=== PATIENT | male | born 1980 | race Caucasian/White ===

== ENCOUNTER 2022-12-18 21:20 | Inpatient (IN) | payer MEDICARE, MEDICAID ==
[2022-12-18 22:08] LABS: Bilirubin Neg (Negative); Blood, Urine 25 (Negative); Clarity Cloudy (Clear); Glucose, Urine (Dipstick) Normal (Negative); Ketone, Urine 150 mg/dL (Negative); Leukocyte 500 (Negative); Nitrite Positive (Negative); Protein, Urine (Dipstick) 30 mg/dl (Neg-Trace); Specific Gravity, Urine 1.025 (1.005-1.030); Urobilinogen Normal mg/dL (Less than 2)
[2022-12-18 22:25] LABS: Bacteria/HPF 3+ HPF (None Seen); RBC/HPF 0-3 HPF (0-3); Squamous Epithelial None Seen HPF (0-3); WBC/HPF Greater than 50 HPF (0-3)
[2022-12-18 22:45] LABS: Hemoglobin 16.3 g/dL (13.5-17.5); Mean Corpuscular HGB CONC 33.1 g/dL (32.0-36.0); Mean Corpuscular Hemoglobin 30.6 pg (27.0-33.0); Mean Corpuscular Volume 92.5 fl (81.2-95.1); Mean Platelet Volume 10.1 fl (7.4-10.4); Platelet Count 260 10x3/uL (150-450); RBC Distribution Width 12.6 % (11.5-14.5); Red Blood Cell (RBC) Count 5.32 10x6/uL (4.32-5.72)
[2022-12-18 22:47] LABS: SARS-CoV-2 NAA Rapid Test Not Detected (NotDetected)
[2022-12-18 22:48] LABS: ALT (SGPT) 13 U/L (8-55); AST (SGOT) 16 U/L (5-34); Albumin 4.6 g/dL (3.5-5.0); Alkaline Phosphatase 107 U/L (40-110); Anion Gap 16 mmol/L (10-20); BUN (Urea Nitrogen) 10 mg/dL (8.9-20.6); Calc. Creatinine Clearance 0 mL/min (70-130); Calcium 9.6 mg/dL (7.8-10.44); Carbon Dioxide 17 mmol/L (22-29); Chloride 110 mmol/L (98-107); Estimated GFR 113; Globulin 2.7 g/dL (2.4-3.5); Glucose 64 mg/dL (70-105); Potassium 3.8 mmol/L (3.5-5.1); Protein, Total 7.3 g/dL (6.0-8.3); Sodium 139 mmol/L (136-145)
[2022-12-18] MEDS ORDERED: cefTRIAXone (ROCEPHIN) 2 GM VIAL ONE (23:04)
[2022-12-18 23:10] LABS: MDiff Complete? YES
[2022-12-18 23:15] LABS: Lymphocytes 4 % (21-51); Monocytes 10 % (0-10); Neutrophil 86 % (42-75)
[2022-12-18 23:17] LABS: Platelet Morphology Comment Appears Adequate; RBC Morphology Normal
[2022-12-19] MEDS ORDERED: Calcium Carbonate 500 MG ChewTAB PO PRN (00:33)
[2022-12-19] MEDS ORDERED: Ondansetron PF 4 MG/2 ML Vial IVP PRN (00:33)
[2022-12-19] MEDS ORDERED: Acetaminophen 325 MG TAB PO PRN (00:33)
[2022-12-19] MEDS ORDERED: HYDROcodone/Acetaminophen 5/325 mg Tablet PO PRN (00:33)
[2022-12-19] MEDS ORDERED: Bisacodyl 5 MG TAB PO PRN (00:33)
[2022-12-19] MEDS ORDERED: Bisacodyl 10 MG SUPP PR PRN (00:33)
[2022-12-19] MEDS ORDERED: Guaifenesin DM 100-10/5 ML UDCUP PO PRN (00:33)
[2022-12-19] MEDS ORDERED: Zolpidem Tartrate 5 MG TAB PO PRN (00:35)
[2022-12-19 01:28] VITALS: BMI 22.7
[2022-12-19] MEDS: Dextrose 5%-Lactated Ringers 1,000 ML IV SCH ×3 (01:30→21:27)
[2022-12-19] MEDS ORDERED: Lactated Ringer's 500 ML IV SCH (01:45)
[2022-12-19] MEDS ORDERED: Vancomycin HCl 1 GM in Sodium Chloride 0.9% 250 ML 250 ML IVPB SCH (02:00)
[2022-12-19] MEDS ORDERED: Vancomycin 1 GM VIAL ONE (02:39)
[2022-12-19 04:14] LABS: #Basophils 0.1 10x3/uL (0.0-0.2); #Eosinphils 0.1 10x3/uL (0.0-0.5); #Monocytes 1.9 10x3/uL (0.0-1.1); #Neutrophils 13.3 10x3/uL (1.5-8.4); %Basophils 0.4 % (0.0-2.0); %Eosinophils 0.7 % (0.0-6.0); %Lymphocytes 5.2 % (18.0-47.0); %Monocytes 11.7 % (0.0-10.0); %Neutrophils 81.5 % (40.0-75.0); Hemoglobin 14.3 g/dL (13.5-17.5); Mean Corpuscular HGB CONC 34.3 g/dL (32.0-36.0); Mean Corpuscular Hemoglobin 31.4 pg (27.0-33.0); Mean Corpuscular Volume 91.4 fl (81.2-95.1); Mean Platelet Volume 9.9 fl (7.4-10.4); Platelet Count 222 10x3/uL (150-450); RBC Distribution Width 12.5 % (11.5-14.5); Red Blood Cell (RBC) Count 4.56 10x6/uL (4.32-5.72); White Blood Cell (WBC) Count 16.3 10x3/uL (3.5-10.5)
[2022-12-19 04:21] LABS: Anion Gap 12 mmol/L (10-20); BUN (Urea Nitrogen) 11 mg/dL (8.9-20.6); Calc. Creatinine Clearance 145 mL/min (70-130); Calcium 8.4 mg/dL (7.8-10.44); Carbon Dioxide 17 mmol/L (22-29); Chloride 115 mmol/L (98-107); Estimated GFR 119; Glucose 113 mg/dL (70-105); Potassium 3.6 mmol/L (3.5-5.1); Sodium 140 mmol/L (136-145)
[2022-12-19] MEDS ORDERED: clonazePAM 0.5 MG TAB ONE (08:02)
[2022-12-19] MEDS: clonazePAM 0.5 MG TAB PO SCH (08:08)
[2022-12-19] MEDS: Senokot S 8.6-50 MG TAB PO SCH ×2 (08:09→21:23)
[2022-12-19] MEDS: Oxybutynin ER 5 MG TAB PO SCH (08:09)
[2022-12-19] MEDS ORDERED: Bisacodyl 10 MG SUPP PR SCH (09:00)
[2022-12-19] MEDS ORDERED: Magnesium Citrate 300 ML BOT PO SCH (09:00)
[2022-12-19] MEDS: cefTRIAXone\\ROCEPHIN 2 GM in Sodium Chloride 0.9% 100 ML IVPB SCH (23:32)
[2022-12-20 05:38] LABS: Hemoglobin 13.8 g/dL (13.5-17.5); Mean Corpuscular HGB CONC 33.5 g/dL (32.0-36.0); Mean Corpuscular Hemoglobin 30.7 pg (27.0-33.0); Mean Corpuscular Volume 91.8 fl (81.2-95.1); Mean Platelet Volume 9.9 fl (7.4-10.4); Platelet Count 214 10x3/uL (150-450); RBC Distribution Width 12.8 % (11.5-14.5); Red Blood Cell (RBC) Count 4.49 10x6/uL (4.32-5.72); White Blood Cell (WBC) Count 6.9 10x3/uL (3.5-10.5)
[2022-12-20 05:48] LABS: Anion Gap 11 mmol/L (10-20); BUN (Urea Nitrogen) 4 mg/dL (8.9-20.6); Calc. Creatinine Clearance 150 mL/min (70-130); Calcium 8.5 mg/dL (7.8-10.44); Carbon Dioxide 20 mmol/L (22-29); Chloride 115 mmol/L (98-107); Estimated GFR 120; Glucose 112 mg/dL (70-105); Potassium 3.4 mmol/L (3.5-5.1); Sodium 143 mmol/L (136-145)
[2022-12-20 06:16] LABS: MDiff Complete? YES
[2022-12-20 06:19] LABS: Band 1 % (5-11); Eosinophils 3 % (0-10); Lymphocytes 6 % (21-51); Monocytes 16 % (0-10); Neutrophil 73 % (42-75)
[2022-12-20 06:21] LABS: Platelet Morphology Comment Appears Adequate; RBC Morphology Within Normal Limits
[2022-12-20 09:13] LABS: Magnesium 1.8 mg/dL (1.6-2.6); Phosphorus 2.3 mg/dL (2.3-4.7)
[2022-12-20] MEDS: Senokot S 8.6-50 MG TAB PO SCH ×2 (10:11→21:29)
[2022-12-20] MEDS: clonazePAM 0.5 MG TAB PO SCH (10:11)
[2022-12-20] MEDS: Oxybutynin ER 5 MG TAB PO SCH (10:15)
[2022-12-20] MEDS ORDERED: Hyoscyamine SL 0.125 MG TAB SL SCH (10:30)
[2022-12-20] MEDS ORDERED: Bisacodyl 5 MG TAB PO PRN (13:53)
[2022-12-20] MEDS: Hyoscyamine SL 0.125 MG TAB SL SCH ×2 (16:12→21:31)
[2022-12-20] MEDS ORDERED: Non-Formulary Medication 1 EACH (Methenamine Hippurate [Methenamine Hippurate] 1 GM Tablet PO SCH (21:00)
[2022-12-20] MEDS: Topiramate 100 MG TAB PO SCH (21:30)
[2022-12-20] MEDS: Zolpidem Tartrate 5 MG TAB PO SCH (21:30)
[2022-12-20] MEDS: cefTRIAXone\\ROCEPHIN 2 GM in Sodium Chloride 0.9% 100 ML IVPB SCH (23:21)
[2022-12-21 05:51] LABS: Hemoglobin 14.2 g/dL (13.5-17.5); Mean Corpuscular HGB CONC 33.3 g/dL (32.0-36.0); Mean Corpuscular Hemoglobin 30.5 pg (27.0-33.0); Mean Corpuscular Volume 91.4 fl (81.2-95.1); Platelet Count 240 10x3/uL (150-450); RBC Distribution Width 12.6 % (11.5-14.5); Red Blood Cell (RBC) Count 4.66 10x6/uL (4.32-5.72); White Blood Cell (WBC) Count 5.5 10x3/uL (3.5-10.5)
[2022-12-21 05:58] LABS: ALT (SGPT) 11 U/L (8-55); AST (SGOT) 13 U/L (5-34); Albumin 3.5 g/dL (3.5-5.0); Alkaline Phosphatase 73 U/L (40-110); Anion Gap 10 mmol/L (10-20); BUN (Urea Nitrogen) 9 mg/dL (8.9-20.6); Bilirubin, Total 0.3 mg/dL (0.2-1.2); Calc. Creatinine Clearance 145 mL/min (70-130); Calcium 8.8 mg/dL (7.8-10.44); Carbon Dioxide 23 mmol/L (22-29); Chloride 113 mmol/L (98-107); Estimated GFR 119; Globulin 2.1 g/dL (2.4-3.5); Glucose 101 mg/dL (70-105); Potassium 3.4 mmol/L (3.5-5.1); Protein, Total 5.6 g/dL (6.0-8.3); Sodium 143 mmol/L (136-145)
[2022-12-21 06:01] LABS: MDiff Complete? YES
[2022-12-21 06:25] LABS: Band 1 % (5-11); Eosinophils 5 % (0-10); Lymphocytes 10 % (21-51); Monocytes 17 % (0-10); Neutrophil 66 % (42-75)
[2022-12-21 06:27] LABS: Platelet Morphology Comment Appears Adequate; RBC Morphology Within Normal Limits
[2022-12-21] MEDS ORDERED: Electrolyte Replacement Protocol 1 EACH FS SCH (07:40)
[2022-12-21] MEDS ORDERED: Magnesium 2 GM/50 ML(in water) 2 GM in Premix Bag 1 BAG IVPB SCH (08:00)
[2022-12-21] MEDS: Polyethylene Glycol 3350 17 GM Packet PO SCH (08:14)
[2022-12-21] MEDS: Vitamin E 400 UNITS CAP PO SCH (08:15)
[2022-12-21] MEDS: Topiramate 100 MG TAB PO SCH ×2 (08:15→21:45)
[2022-12-21] MEDS: Hyoscyamine SL 0.125 MG TAB SL SCH ×3 (08:15→21:45)
[2022-12-21] MEDS: clonazePAM 0.5 MG TAB PO SCH (08:15)
[2022-12-21] MEDS: Senokot S 8.6-50 MG TAB PO SCH ×2 (08:17→21:45)
[2022-12-21] MEDS ORDERED: Magnevist 469MG/ML 20 ML VIAL ONE (08:36)
[2022-12-21] MEDS ORDERED: Potassium Chloride 20 MEQ TAB PO SCH (09:00)
[2022-12-21] MEDS ORDERED: Bisacodyl 5 MG TAB PO SCH (09:00)
[2022-12-21] MEDS ORDERED: DALFAMPRIDINE 10 MG PO SCH (09:00)
[2022-12-21] MEDS ORDERED: Hyoscyamine SL 0.125 MG TAB SL SCH (09:00)
[2022-12-21] MEDS: Zolpidem Tartrate 5 MG TAB PO SCH (21:45)
[2022-12-21] MEDS: Cefepime 2 GM in Sodium Chloride 0.9% 100 ML IVPB SCH (21:46)
[2022-12-22 04:38] LABS: Hemoglobin 14.3 g/dL (13.5-17.5); MDiff Complete? YES; Mean Corpuscular HGB CONC 32.8 g/dL (32.0-36.0); Mean Corpuscular Hemoglobin 30.4 pg (27.0-33.0); Mean Corpuscular Volume 92.6 fl (81.2-95.1); Mean Platelet Volume 9.9 fl (7.4-10.4); Platelet Count 254 10x3/uL (150-450); RBC Distribution Width 12.4 % (11.5-14.5); Red Blood Cell (RBC) Count 4.71 10x6/uL (4.32-5.72); White Blood Cell (WBC) Count 5.2 10x3/uL (3.5-10.5)
[2022-12-22 05:04] LABS: Eosinophils 8 % (0-10); Lymphocytes 9 % (21-51); Monocytes 7 % (0-10); Neutrophil 76 % (42-75); Platelet Morphology Comment Appears Adequate
[2022-12-22 05:10] LABS: ALT (SGPT) 16 U/L (8-55); AST (SGOT) 14 U/L (5-34); Albumin 3.6 g/dL (3.5-5.0); Alkaline Phosphatase 82 U/L (40-110); Anion Gap 11 mmol/L (10-20); BUN (Urea Nitrogen) 11 mg/dL (8.9-20.6); Bilirubin, Total 0.4 mg/dL (0.2-1.2); Calc. Creatinine Clearance 132 mL/min (70-130); Calcium 9.1 mg/dL (7.8-10.44); Carbon Dioxide 19 mmol/L (22-29); Chloride 115 mmol/L (98-107); Estimated GFR 115; Globulin 2.1 g/dL (2.4-3.5); Glucose 93 mg/dL (70-105); Magnesium 2.1 mg/dL (1.6-2.6); Potassium 3.8 mmol/L (3.5-5.1); Protein, Total 5.7 g/dL (6.0-8.3); Sodium 141 mmol/L (136-145)
[2022-12-22] MEDS: clonazePAM 0.5 MG TAB PO SCH (08:25)
[2022-12-22] MEDS: Cefepime 2 GM in Sodium Chloride 0.9% 100 ML IVPB SCH ×2 (08:25→21:13)
[2022-12-22] MEDS: Polyethylene Glycol 3350 17 GM Packet PO SCH (08:25)
[2022-12-22] MEDS: Topiramate 100 MG TAB PO SCH ×2 (08:26→21:14)
[2022-12-22] MEDS: Vitamin E 400 UNITS CAP PO SCH (08:26)
[2022-12-22] MEDS: Hyoscyamine SL 0.125 MG TAB SL SCH ×3 (08:26→21:14)
[2022-12-22] MEDS: Senokot S 8.6-50 MG TAB PO SCH (08:30)
[2022-12-22] MEDS: Zolpidem Tartrate 5 MG TAB PO SCH (21:14)
[2022-12-23] MEDS: Senokot S 8.6-50 MG TAB PO SCH ×2 (02:31→08:27)
[2022-12-23 04:48] LABS: #Basophils 0.1 10x3/uL (0.0-0.2); #Eosinphils 0.3 10x3/uL (0.0-0.5); #Monocytes 0.7 10x3/uL (0.0-1.1); %Basophils 1.2 % (0.0-2.0); %Eosinophils 5.2 % (0.0-6.0); %Lymphocytes 13.3 % (18.0-47.0); %Monocytes 12.1 % (0.0-10.0); %Neutrophils 67.7 % (40.0-75.0); Mean Corpuscular HGB CONC 33.1 g/dL (32.0-36.0); Mean Corpuscular Hemoglobin 30.4 pg (27.0-33.0); Mean Corpuscular Volume 91.7 fl (81.2-95.1); Mean Platelet Volume 9.8 fl (7.4-10.4); Platelet Count 261 10x3/uL (150-450); RBC Distribution Width 12.5 % (11.5-14.5); Red Blood Cell (RBC) Count 4.94 10x6/uL (4.32-5.72); White Blood Cell (WBC) Count 5.9 10x3/uL (3.5-10.5)
[2022-12-23 05:12] LABS: ALT (SGPT) 28 U/L (8-55); AST (SGOT) 26 U/L (5-34); Albumin 3.8 g/dL (3.5-5.0); Alkaline Phosphatase 88 U/L (40-110); Anion Gap 11 mmol/L (10-20); BUN (Urea Nitrogen) 15 mg/dL (8.9-20.6); Bilirubin, Total 0.3 mg/dL (0.2-1.2); Calc. Creatinine Clearance 123 mL/min (70-130); Calcium 9.2 mg/dL (7.8-10.44); Carbon Dioxide 19 mmol/L (22-29); Chloride 115 mmol/L (98-107); Estimated GFR 113; Globulin 2.3 g/dL (2.4-3.5); Glucose 97 mg/dL (70-105); Protein, Total 6.1 g/dL (6.0-8.3); Sodium 141 mmol/L (136-145)
[2022-12-23] MEDS: Cefepime 2 GM in Sodium Chloride 0.9% 100 ML IVPB SCH (08:26)
[2022-12-23] MEDS: Topiramate 100 MG TAB PO SCH (08:27)
[2022-12-23] MEDS: Polyethylene Glycol 3350 17 GM Packet PO SCH (08:27)
[2022-12-23] MEDS: clonazePAM 0.5 MG TAB PO SCH (08:27)
[2022-12-23] MEDS: Hyoscyamine SL 0.125 MG TAB SL SCH ×2 (08:27→15:03)
[2022-12-23] MEDS: Vitamin E 400 UNITS CAP PO SCH (08:27)
[2022-12-23 14:09] VITALS: BP 141/78; TEMP 97.7
== END 2022-12-23 16:01 | DRG 698 ==
LOC: CSHERS 21:20 → CSHERHOLD 12-19 00:53 → CSHTELE 12-19 09:17
PROVIDERS: ADMIT Student in an Organized Health Care Education/Training Program; ATTEND Internal Medicine
DX: T83.510A Infection and inflammatory reaction due to cystostomy catheter, initial encounter (principal); A41.52 Sepsis due to Pseudomonas; A41.59 Other Gram-negative sepsis; N39.0 Urinary tract infection, site not specified; R47.01 Aphasia; E87.20 Acidosis, unspecified; Y84.6 Urinary catheterization as the cause of abnormal reaction of the patient, or of later complication, without mention of misadventure at the time of the procedure; Z20.822 Contact with and (suspected) exposure to COVID-19; G35 Multiple sclerosis; Z74.01 Bed confinement status; Z87.442 Personal history of urinary calculi; K59.00 Constipation, unspecified; N31.9 Neuromuscular dysfunction of bladder, unspecified; Z79.899 Other long term (current) drug therapy; E86.0 Dehydration
CPT/HCPCS: 36415; 70553; 71045; 72156; 74176; 80048; 80053; 81003; 81015; 83605; 83735; 84100; 84145; 85025; 87040; 87077; 87086; 87186; 93005; 96365; A9579; J0692; J0696; J1650; J3370; J3475; J3490; J7050; J7120